=== PATIENT | male | born 1950 | race Hispanic/Latino ===

== ENCOUNTER → 2019-05-17 | Outpatient (CLI) | payer OTHER | END | disposition home or self-care (01) | LOC: RAH 10:10 | PROVIDERS: ATTEND Internal Medicine Cardiovascular Disease | DX: Z13.6 Encounter for screening for cardiovascular disorders (principal) | CPT/HCPCS: 75571 ==

== ENCOUNTER 2019-08-09 06:36 | Day surgery (SDC) | payer MEDICARE ==
[2019-08-07 11:13] VITALS: BP 151/76
[2019-08-07 11:40] LABS: BASOPHILS % (AUTO) 0.3 % (0.0-5.0); EOSINOPHILS % (AUTO) 3.9 % (0.0-8.0); HEMATOCRIT 41.2 % (42-54); LYMPHOCYTES % (AUTO) 26.7 % (21.0-51.0); MEAN CORPUSCULAR HEMOGLOBIN 29.7 pg (27.0-33.0); MEAN CORPUSCULAR VOLUME 87.5 fL (79-99); MONOCYTES % (AUTO) 8.6 % (3.0-13.0); NEUTROPHILS % (AUTO) 60.3 % (40.0-77.0); PLATELET COUNT (AUTO) 192 K/uL (130-400); RED BLOOD CELL COUNT(AUTO) 4.71 MIL/uL (4.50-6.20); RED CELL DISTRIBUTION WIDTH 11.9 % (11.0-15.5); WHITE BLOOD COUNT (AUTO) 6.2 K/uL (4.8-10.8)
[2019-08-07 11:42] LABS: APPEARANCE,URINE Clear (CLEAR); BILIRUBIN,URINE Negative (NEGATIVE); COLOR,URINE Dark Yellow (YELLOW); GLUCOSE, URINE (UA) Negative (NEGATIVE); KETONES,URINE Trace mg/dL (NEGATIVE); LEUKOCYTE ESTERASE ,URINE Negative (NEGATIVE); NITRATE,URINE Negative (NEGATIVE); OCCULT BLOOD,URINE Negative (NEGATIVE); PROTEIN,URINE Negative (NEGATIVE)
[2019-08-07 11:50] LABS: CREATININE 1.2 mg/dL (0.5-1.5); POTASSIUM 4.1 mmol/L (3.5-5.1)
[2019-08-07 11:53] LABS: INR 0.97 (0.85-1.15); PARTIAL THROMBOPLASTIN TIME 28.7 SEC (26.3-35.5); PROTHROMBIN TIME 10.2 SEC (9.6-11.6)
[2019-08-07 11:54] LABS: BACTERIA,URINE Rare /HPF (None Seen); MUCUS,URINE Few LPF (None Seen); RBC,URINE 0-1 /HPF (0-1); SQUAMOUS EPITHELIAL CELL,UR Rare /HPF (0-2); WBC,URINE 0-1 /HPF (0-1)
[2019-08-09] VITALS (8 sets, daily range): BP systolic 126–186; BP diastolic 66–75
[~2019-08-09] VITALS: Ht 182.9 cm; Wt 150.9 kg
[~2019-08-09 06:36] MED LIST: ALLO100T PO; ASPI-555 PO; LISI1TAB28 PO; ROSU20TA31 PO
[2019-08-09] MEDS ORDERED: SODIUM CHLORIDE 0.9% 1000ML 1,000 ML IV ONE (07:20)
[2019-08-09] MEDS ORDERED: HEPARIN SODIUM 1000UNIT/ML 10ML VIAL ONE (09:05)
[2019-08-09] MEDS ORDERED: IOHEXOL 350 MG/ML 100ML INFUS..BTL IV ONE (09:05)
[2019-08-09] MEDS ORDERED: MIDAZOLAM HCL 1 MG/ML 2ML VIAL ONE (09:05)
[2019-08-09] MEDS ORDERED: NITROGLYCERIN 2 MG/VIAL VIAL IV ONE (09:05)
[2019-08-09] MEDS ORDERED: LIDOCAINE HCL 2% 20ML ONE (09:06)
[2019-08-09] MEDS ORDERED: IOHEXOL-350 50ML VIAL IV ONE (09:07)
[2019-08-09] MEDS ORDERED: FENTANYL CITRATE PF 50 MCG/1 ML 2ML VIAL ONE (09:12)
[2019-08-09] MEDS ORDERED: NICARDIPINE HCL 25 MG/10 ML ML IV ONE (09:12)
== END 2019-08-09 12:50 | disposition home or self-care (01) ==
LOC: DAH 06:36
PROVIDERS: ATTEND Internal Medicine Cardiovascular Disease
DX: I25.10 Atherosclerotic heart disease of native coronary artery without angina pectoris (principal); Z79.01 Long term (current) use of anticoagulants; I10 Essential (primary) hypertension; E78.5 Hyperlipidemia, unspecified; E66.9 Obesity, unspecified; I45.10 Unspecified right bundle-branch block; M54.17 Radiculopathy, lumbosacral region; Z96.651 Presence of right artificial knee joint; Z98.890 Other specified postprocedural states; Z68.42 Body mass index [BMI] 45.0-49.9, adult
CPT/HCPCS: 36415; 71045; 80048; 81001; 85025; 85610; 85730; 93005; 93458; C1760; C1894 ×2; J1644; J2250; J3010; J3490 ×3; J7030; Q9965; Q9967; 99156; 99157

== ENCOUNTER 2022-09-06 05:48 | Observation (INO) | payer MEDICARE, OTHER ==
[2022-09-02 12:46] LABS: BASOPHILS % (AUTO) 0.3 % (0.0-5.0); EOSINOPHILS % (AUTO) 2.4 % (0.0-8.0); HEMATOCRIT 40.9 % (42-54); LYMPHOCYTES % (AUTO) 23.1 % (21.0-51.0); MEAN CORPUSCULAR HGB CONC 33.3 g/dL (32.0-36.0); MEAN CORPUSCULAR VOLUME 87.2 fL (79-99); MONOCYTES % (AUTO) 7.5 % (3.0-13.0); NEUTROPHILS % (AUTO) 66.4 % (40.0-77.0); PLATELET COUNT (AUTO) 216 K/uL (130-400); RED BLOOD CELL COUNT(AUTO) 4.69 MIL/uL (4.50-6.20); WHITE BLOOD COUNT (AUTO) 6.7 K/uL (4.8-10.8)
[2022-09-02 12:54] LABS: CREATININE 0.9 mg/dL (0.5-1.5)
[2022-09-02 12:57] LABS: INR 0.97 (0.85-1.15); PROTHROMBIN TIME 10.6 SEC (9.6-11.6)
[2022-09-02 12:58] LABS: PARTIAL THROMBOPLASTIN TIME 29.1 SEC (26.3-35.5)
[2022-09-02 13:09] VITALS: BP 152/76
[~2022-09-06] VITALS: Ht 182.9 cm; Wt 147.6 kg
[2022-09-06] VITALS (37 sets, daily range): BP systolic 120–159; BP diastolic 59–84
[~2022-09-06 05:48] MED LIST changes: -ASPI-555 PO; +ASPI-556 PO; +CHOL500050 PO; -LISI1TAB28 PO; +LISI1TAB51 PO; +LYSI500C5 PO; +MULT-1367 PO; +NAPR220T57 PO; +TAMS-1 PO
[2022-09-06] MEDS ORDERED: CEFAZOLIN SODIUM 1 GM VIAL IVPB SCH (06:00)
[2022-09-06] MEDS ORDERED: ROPIVICAINE 250MG+KETOROLAC 15MG+EPINEPHRINE 0.3+CLONIDINE 80 IV PRN ×5 (06:00)
[2022-09-06] MEDS: LACTATED RINGERS 1000ML 1,000 ML IV SCH ×2 (06:34→06:45)
[2022-09-06] MEDS ORDERED: MIDAZOLAM HCL 1 MG/ML 2ML VIAL ONE (07:01)
[2022-09-06] MEDS ORDERED: SUCCINYLCHOLINE CHLORIDE 20 MG/ML 10 ML VIAL ONE (07:01)
[2022-09-06] MEDS ORDERED: PROPOFOL 10 MG/ML 20ML VIAL IV ONE ×2 (07:01→10:37)
[2022-09-06] MEDS ORDERED: GLYCOPYRROLATE 1 MG/5 ML SYRINGE ONE (07:01)
[2022-09-06] MEDS ORDERED: LIDOCAINE PF 100MG/5ML (2%) SYRINGE 5ML ONE (07:01)
[2022-09-06] MEDS ORDERED: NEOSTIGMINE 5MG/5ML SYR IV ONE (07:01)
[2022-09-06] MEDS ORDERED: DEXAMETHASONE SOD PHOSPHATE 10MG/ML 1ML VIAL ONE (07:01)
[2022-09-06] MEDS ORDERED: FENTANYL CITRATE PF 50 MCG/1 ML 2ML VIAL ONE ×2 (07:01→08:00)
[2022-09-06] MEDS ORDERED: ONDANSETRON 4MG INJ ONE (07:01)
[2022-09-06] MEDS ORDERED: ROCURONIUM 10MG/1ML SYR 10 MG/ML ML ONE (07:02)
[2022-09-06] MEDS ORDERED: PHENYLEPHRINE HCL 10 MG/ML 1ML VIAL IV ONE (07:04)
[2022-09-06] MEDS ORDERED: HYDROCODONE/ACETAMINOPHEN 5/325 MG TAB PO PRN (07:30)
[2022-09-06] MEDS ORDERED: KCL 20 MEQ ERTAB PO PRN (07:30)
[2022-09-06] MEDS ORDERED: POTASSIUM CHLORIDE 20MEQ/100ML 100 ML IV PRN (07:30)
[2022-09-06] MEDS ORDERED: POTASSIUM CHLORIDE 10% ELIXIR 20 MEQ/15 ML UDCUP PO PRN (07:30)
[2022-09-06] MEDS ORDERED: ONDANSETRON 4MG INJ IVP PRN (07:30)
[2022-09-06] MEDS: 0.9%NACL 1000ML 1,000 ML IV SCH ×2 (07:30→15:48)
[2022-09-06] MEDS ORDERED: MORPHINE 4 MG SYG IVP PRN (07:30)
[2022-09-06] MEDS ORDERED: LIDOCAINE HCL-MPF 1% 2ML VIAL IV PRN (07:30)
[2022-09-06] MEDS ORDERED: CEFAZOLIN SODIUM 3 GM VIAL IV ONE (07:33)
[2022-09-06] MEDS ORDERED: TRANEXAMIC ACID 1000MG/10ML IV ONE (08:10)
[2022-09-06] MEDS ORDERED: TRANEXAMIC ACID 1000MG/10ML ONE (08:13)
[2022-09-06] MEDS: HYDROCHLOROTHIAZIDE 25 MG TABLET PO SCH (09:00)
[2022-09-06] MEDS: POLYETHYLENE GLYCOL 3350 17 GM POWD.PACK PO SCH (09:00)
[2022-09-06] MEDS: ALLOPURINOL 100 MG TABLET PO SCH (09:00)
[2022-09-06] MEDS: FAMOTIDINE 20MG TAB PO SCH ×2 (09:00→21:20)
[2022-09-06] MEDS: MULTIVITAMIN TABLET PO SCH (09:00)
[2022-09-06] MEDS: LISINOPRIL 20 MG TABLET PO SCH (09:00)
[2022-09-06] MEDS ORDERED: IBUPROFEN 800MG + NS 250ML IV SCH (10:30)
[2022-09-06] MEDS ORDERED: MEPERIDINE-PF 25 MG/ML SYG ONE ×2 (10:36→11:22)
[2022-09-06] MEDS ORDERED: SUGAMMADEX SODIUM 200 MG/2 ML VIAL IV ONE (10:48)
[2022-09-06] MEDS: ACETAMINOPHEN 1,000 MG/100 ML VIAL IV SCH ×4 (11:14→21:19)
[2022-09-06] MEDS: TRAMADOL HCL 50 MG TABLET PO SCH ×2 (12:00→19:27)
[2022-09-06] MEDS: CEFAZOLIN SODIUM 1 GM VIAL IVP SCH ×2 (12:10→21:24)
[2022-09-06] MEDS: IBUPROFEN 800MG + NS 250ML IV SCH ×2 (13:50→22:25)
[2022-09-06] MEDS ORDERED: ACETAMINOPHEN 1,000 MG/100 ML VIAL IV ONE (20:51)
[2022-09-06] MEDS ORDERED: TAMSULOSIN HCL 0.4 MG CAP.ER.24H PO SCH (21:00)
[2022-09-07] VITALS: BP 150/65
[2022-09-07] MEDS: TRAMADOL HCL 50 MG TABLET PO SCH ×3 (00:01→11:44)
[2022-09-07] MEDS: ACETAMINOPHEN 1,000 MG/100 ML VIAL IV SCH (04:59)
[2022-09-07] MEDS: 0.9%NACL 1000ML 1,000 ML IV SCH (05:14)
[2022-09-07 05:18] LABS: HEMATOCRIT 37.4 % (42-54); MEAN CORPUSCULAR HEMOGLOBIN 28.4 pg (27.0-33.0); MEAN CORPUSCULAR HGB CONC 31.6 g/dL (32.0-36.0); MEAN CORPUSCULAR VOLUME 90.1 fL (79-99); RED BLOOD CELL COUNT(AUTO) 4.15 MIL/uL (4.50-6.20); RED CELL DISTRIBUTION WIDTH 12.8 % (11.0-15.5); WHITE BLOOD COUNT (AUTO) 7.8 K/uL (4.8-10.8)
[2022-09-07 05:25] LABS: CREATININE 0.9 mg/dL (0.5-1.5); POTASSIUM 3.9 mmol/L (3.5-5.1)
[2022-09-07] MEDS: IBUPROFEN 800MG + NS 250ML IV SCH (06:35)
[2022-09-07] MEDS ORDERED: ENOXAPARIN SODIUM 40 MG/0.4 ML SYRINGE SQ SCH (07:00)
[2022-09-07 07:10] VITALS: BP 142/74
[2022-09-07] MEDS: FAMOTIDINE 20MG TAB PO SCH (08:31)
[2022-09-07] MEDS: MULTIVITAMIN TABLET PO SCH (08:31)
[2022-09-07] MEDS: HYDROCHLOROTHIAZIDE 25 MG TABLET PO SCH (08:31)
[2022-09-07] MEDS: LISINOPRIL 20 MG TABLET PO SCH (08:31)
[2022-09-07] MEDS: ALLOPURINOL 100 MG TABLET PO SCH (08:31)
[2022-09-07] MEDS: POLYETHYLENE GLYCOL 3350 17 GM POWD.PACK PO SCH (08:32)
[2022-09-07] MEDS: HYDROCODONE/ACETAMINOPHEN 10/325 MG TAB PO PRN ×2 (08:35→14:30)
[2022-09-07 11:56] VITALS: BP 138/63
[2022-09-09] MEDS ORDERED: BISACODYL 10 MG SUPP.RECT RC PRN (07:30)
== END 2022-09-07 16:00 | disposition home or self-care (01) ==
LOC: DAH 05:48 → DAHIP 05:49 → DAH 05:49 → 4AH 14:49
PROVIDERS: ADMIT Orthopaedic Surgery; ATTEND Orthopaedic Surgery
DX: M16.11 Unilateral primary osteoarthritis, right hip (principal); Z20.822 Contact with and (suspected) exposure to COVID-19; I10 Essential (primary) hypertension; E66.9 Obesity, unspecified; Z68.41 Body mass index [BMI] 40.0-44.9, adult; Z96.652 Presence of left artificial knee joint; Z79.899 Other long term (current) drug therapy
CPT/HCPCS: 80048 ×2; 85025; 85610; 85730; 87426; 36415 ×2; 93005; 87641; 27130; 96376 ×2; 96365; 96366 ×2; 96375; 64447; 73503; 97161; 97530 ×3; 97039 ×2; 96372; 85027; 97116 ×2; A6260; A4649 ×5; C1776 ×5; G0378 ×21; A4663; A4606; A4600; J0690 ×4; J7120; J3010 ×2; J3490 ×3; J1100; J2710; J0330; J2001; J2250; J2704 ×2; J2405; J2175 ×2; J2370; J1741 ×3; G0168; A6212; C1713 ×3; A5120; A4215; A4223; A4222; A4221; J1650